=== PATIENT | female | born 1970 | race Caucasian/White ===

== ENCOUNTER 2023-12-08 12:01 | Emergency (ER) | payer OTHER, SELFPAY ==
[2023-12-08 12:20] VITALS: BP 161/74; PULSE 66; RESP 14; TEMP 36.7; O2SAT 100; BMI 25.7
--- NOTE | 2023-12-08 12:45 | ED.ABDPAIN ---
HPI - Abdominal Pain General Chief Complaint: Abdominal Pain Stated Complaint: abd pain wraps around to her back Time Seen by Provider: 12/08/23 12:30 Source: patient Mode of arrival: Ambulatory History of Present Illness HPI narrative: Patient 53-year-old female healthy without medical problems presenting today with ongoing abdominal pain. She reports that she thinks she may have a UTI she was frequent urination without dysuria ongoing for a couple of weeks. She says that it usually just resolve it is itself. However she is having bilateral flank pain. She overall feels bloated. She like pain is wrapping around her stomach. She has had change in bowel movements stating that she usually has soft stools but feels like they are little bit harder. She is not having any black or bloody stool. No nausea or vomiting. Related Data Home Medications Medication Instructions Recorded Confirmed ibuprofen 200 mg capsule (Advil 200 mg PO Q6H PRN Migraine Headache 12/08/23 12/08/23 Migraine) Previous Rx's Medication Instructions Recorded cephalexin 500 mg capsule 500 mg PO BID 3 days #6 caps 12/08/23 Allergies Allergy/AdvReac Type Severity Reaction Status Date / Time morphine AdvReac Severe ITCHING Verified 12/08/23 12:23 Patient History Social History Smoking Status: Never smoker Smoking Status: Never smoker alcohol intake frequency: 0-2 drinks per day Substance Use Type: does not use Exam Initial Vital Signs Initial Vital Signs: Vital Signs Temperature 98.1 F 12/08/23 12:20 Pulse Rate 66 12/08/23 12:20 Respiratory Rate 14 12/08/23 12:20 Blood Pressure 161/74 H 12/08/23 12:20 Pulse Oximetry 100 12/08/23 12:20 Oxygen Delivery Method Room Air 12/08/23 12:20 GENERAL: Alert well-appearing 53-year-old female HEENT: Head atraumatic,EOMI, pupils reactive, face symmetric, moist mucous membranes CARDIOVASCULAR: Regular rate and rhythm without murmurs, rubs or gallops. RESPIRATORY: Breath sounds equal bilaterally, no wheezes rales or rhonchi. ABDOMEN: Soft, nontender. Normoactive bowel sounds all 4 quadrants. No guarding or rebound. Negative right upper quadrant pain : Mild bilateral CVA tenderness EXTREMITIES: Normal range of motion, no clubbing or edema. Neurovascularly intact NEUROLOGICAL: Alert and oriented x4.Normal gait and speech. SKIN: Warm, dry, no laceration, no petechiae, no rashes or lesions. Course Orders Ordered: ED Orders 12/08/23 12:50 CT abdomen pelvis w con Stat Complete Blood Count AUTO DIFF Stat Comprehensive Metabolic Panel Stat Lipase Stat Discontinued Medications Ondansetron HCl (Ondansetron 4 Mg Odt) 4 mg PO NOW PRN PRN Reason: Nausea And Vomiting Ondansetron HCl (Ondansetron 4 Mg/2 Ml Inj) 4 mg IV NOW PRN PRN Reason: Nausea And Vomiting Vital Signs Vital signs: Vital Signs - 8 hr 12/08/23 12:20 Temperature 98.1 F Pulse Rate 66 Respiratory Rate 14 Blood Pressure 161/74 H Pulse Oximetry 100 Oxygen Delivery Method Room Air MDM - Abdominal Pain Lab Data 12/08/23 12:50 12/08/23 12:50 Labs: Lab Results 12/08/23 Range/Units 12:50 WBC 5.8 (4.5-11.0) X10^3/uL RBC 4.59 (4.0-5.2) X10^6/uL Hgb 14.0 (12.0-16.0) g/dL Hct 41.0 (36-46) % MCV 89.3 (80-100) fL MCH 30.4 (26-34) PG MCHC 34.0 (30-36) % RDW 13.6 (11.6-14.8) % Plt Count 271 (150-400) X10^3/uL Neut % (Auto) 59.9 (50-75) % Lymph % (Auto) 31.4 (25-40) % Coleman % (Auto) 6.3 (3-14) % Eos % (Auto) 1.1 L (2-4) % Baso % (Auto) 1.3 (0-2) % Neut # (Auto) 3500 (0248-4434) /uL Lymph # (Auto) 1800 (7884-4476) /uL Coleman # (Auto) 400 (0-900) /uL Eos # (Auto) 100 (0-450) /uL Baso # (Auto) 100 (0-100) /uL Sodium 139 (137-145) mmol/L Potassium 4.2 (3.4-5.1) mmol/L Chloride 107 (98-107) mmol/L Carbon Dioxide 28 (22-32) mmol/L BUN 12 (7-17) mg/dL Creatinine 0.62 (0.52-1.04) mg/dL Estimated GFR > 60 (>60) mL/min BUN/Creatinine Ratio 19.4 (6-22) Glucose 103 H (70-100) mg/dL Calcium 9.3 (8.4-10.2) mg/dL Total Bilirubin 0.8 (0.2-1.3) mg/dL AST 27 (14-36) IU/L ALT 20 (<35) IU/L Alkaline Phosphatase 79 (38-126) U/L Total Protein 8.0 (6.3-8.2) g/dL Albumin 4.4 (3.5-5.0) g/dL Globulin 3.6 (1.7-4.1) g/dL Albumin/Globulin Ratio 1.2 (1.0-2.8) Lipase 93 (23-300) U/L Point of care testing: Urine Dip Bedside Urine Glucose Negative Bedside Urine Bilirubin - Negative Bedside Urine Ketone - Negative Urine Specific [place] 1.010 Bedside Urine Occult Blood - Negative Bedside Urine pH 6.0 Bedside Urine Protein - Negative Bedside Urine Urobilinogen - Negative Bedside Urine Nitrite - Negative Bedside Urine Leukocytes - Negative Esterase Imaging Data CT scan - abdomen/pelvis: Radiologist's Impression: PROCEDURE: CT ABDOMEN PELVIS W CON INDICATIONS: ongoing ab pain and flank pain TECHNIQUE: After the administration of intravenous contrast, axial sections acquired from the lung bases to the pubic symphysis. Coronal and sagittal reformats were performed. For radiation dose reduction, the following was used: automated exposure control, adjustment of mA and/or kV according to patient size. COMPARISON: None. FINDINGS: Image quality: Diagnostic. Lower Chest: No significant findings. ABDOMEN: Liver: No solid mass. Gallbladder: A 3 mm gallstone is seen within the gallbladder lumen but no acute cholecystitis or biliary obstruction is associated. Biliary ducts: No biliary dilation. Pancreas: No ductal dilation. Spleen: Size is within normal limits. Adrenal Glands: No adrenal nodules. Kidneys and Ureters: No hydronephrosis. No solid mass. No complex renal cystic lesion which requires follow up. Stomach and Bowel: Normal colonic caliber, without significant wall thickening. Mild generalized colonic obstipation. Peritoneum: No abnormal intraperitoneal fluid. No free air. Ventral Wall: No significant ventral hernia. Abdominal Nodes: No retroperitoneal or mesenteric adenopathy by size criteria. Vessels: Aorta and inferior vena cava are normal in size. PELVIS: Pelvic Organs: Unremarkable. Bladder: No bladder wall thickening, accounting for underdistention. Pelvic Nodes: No enlarged lymph nodes. Miscellaneous: No inguinal hernias are seen. Generalized colonic obstipation. Bones: No aggressive osseous abnormality. IMPRESSION: Mild generalized colonic obstipation. Single small gallstone present within the gallbladder lumen without associated biliary dilatation or evidence of gallbladder inflammation. Dictated by: Wei Johnson M.D. on 12/08/2023 at 14:14 MDM Narrative Medical decision making narrative: Patient 53-year-old female presents today with variety of complaints. She feels like she has been having UTI for a couple of weeks with frequent urination but no dysuria. She is some mild flank pain with radiation around her abdomen. Blood work has been reviewed no leukocytosis or anemia, electrolytes are stable AST ALT and bilirubin are within normal limits, lipase 93, POC urine negative nitrates negative leukocyte Imaging has been reviewed CT does show a single small gallstones without biliary dilation and some mild general constipation Patient presents today with frequent urination without evidence of UTI. She was also having some bilateral flank pain and abnormal abdominal pain. CT does show 1 single gallstone without evidence of cholecystitis or cholelithiasis or choledocholithiasis. At this time recommend outpatient follow-up with surgery. Urinalysis is negative although patient is continuing to have frequent urination no evidence of diabetes with a glucose of 103. Will treat her with a short course of antibiotics to see if it improves her symptoms Discharge Plan Departure Patient Disposition: Home Clinical Impression: Cholelithiasis, Constipation Instructions: DI for Gallstones, DI for Constipation Activity Restrictions/Additional Instructions: *You have been diagnosed with constipation and gallstone *What to do: At this time your blood work is overall reassuring you do not have a kidney stone you do have 1 gallstone which is currently not causing any issue however in the future you may require future surgery Not convinced that you have a bladder infection urinary urine was negative with your frequent urination will try a couple days of antibiotic *Continue to take medications as directed Tylenol Motrin as needed for pain Keflex 500 mg twice a day for 3 days *Follow up with your primary care provider in 2-3 days or call [phone] *Return to ER if you should have increasing abdominal pain fever chills persistent nausea or vomiting or any new, worsening or concerning symptoms Prescriptions: New cephalexin 500 mg capsule 500 mg PO BID 3 Days Qty: 6 0RF No Action ibuprofen [Advil Migraine] 200 mg Capsule 200 mg PO Q6H PRN (Reason: Migraine Headache) Referrals: ProviderDaniel [Primary Care Provider] - Stand Alone Forms: Patient Portal/API
--- NOTE | 2023-12-08 12:50 | DI.CT.S_ITS ---
PROCEDURE: CT ABDOMEN PELVIS W CON INDICATIONS: ongoing ab pain and flank pain TECHNIQUE: After the administration of intravenous contrast, axial sections acquired from the lung bases to the pubic symphysis. Coronal and sagittal reformats were performed. For radiation dose reduction, the following was used: automated exposure control, adjustment of mA and/or kV according to patient size. COMPARISON: None. FINDINGS: Image quality: Diagnostic. Lower Chest: No significant findings. ABDOMEN: Liver: No solid mass. Gallbladder: A 3 mm gallstone is seen within the gallbladder lumen but no acute cholecystitis or biliary obstruction is associated. Biliary ducts: No biliary dilation. Pancreas: No ductal dilation. Spleen: Size is within normal limits. Adrenal Glands: No adrenal nodules. Kidneys and Ureters: No hydronephrosis. No solid mass. No complex renal cystic lesion which requires follow up. Stomach and Bowel: Normal colonic caliber, without significant wall thickening. Mild generalized colonic obstipation. Peritoneum: No abnormal intraperitoneal fluid. No free air. Ventral Wall: No significant ventral hernia. Abdominal Nodes: No retroperitoneal or mesenteric adenopathy by size criteria. Vessels: Aorta and inferior vena cava are normal in size. PELVIS: Pelvic Organs: Unremarkable. Bladder: No bladder wall thickening, accounting for underdistention. Pelvic Nodes: No enlarged lymph nodes. Miscellaneous: No inguinal hernias are seen. Generalized colonic obstipation. Bones: No aggressive osseous abnormality. IMPRESSION: Mild generalized colonic obstipation. Single small gallstone present within the gallbladder lumen without associated biliary dilatation or evidence of gallbladder inflammation. Dictated by: Wei Johnson M.D. on 12/08/2023 at 14:14 Approved by: Wei Johnson M.D. on 12/08/2023 at 14:16
[2023-12-08 13:02] LABS: Add Manual Diff / Slide Review NO; Basophils Absolute Auto 100 /uL (0-100); Basophils Percent Auto 1.3 % (0-2); Eosinophils Absolute Auto 100 /uL (0-450); Eosinophils Percent Auto 1.1 % (2-4); Lymphocytes Absolute Auto 1800 /uL (1100-4500); Lymphocytes Percent Auto 31.4 % (25-40); Mean Corpuscular Hemoglobin 30.4 PG (26-34); Mean Corpuscular Volume 89.3 fL (80-100); Monocytes Absolute Auto 400 /uL (0-900); Monocytes Percent Auto 6.3 % (3-14); Neutrophils Absolute Auto 3500 /uL (1500-7000); Neutrophils Percent Auto 59.9 % (50-75); Platelet Count 271 X10^3/uL (150-400); Red Blood Cell Count 4.59 X10^6/uL (4.0-5.2); Red Cell Distribution Width 13.6 % (11.6-14.8); White Blood Cell Count 5.8 X10^3/uL (4.5-11.0)
[2023-12-08 13:19] LABS: Alanine Aminotransferase 20 IU/L (<35); Albumin 4.4 g/dL (3.5-5.0); Albumin Globulin Ratio 1.2 (1.0-2.8); Alkaline Phosphatase 79 U/L (38-126); Aspartate Aminotransferase 27 IU/L (14-36); BUN Creatinine Ratio 19.4 (6-22); Bilirubin Total 0.8 mg/dL (0.2-1.3); Blood Urea Nitrogen 12 mg/dL (7-17); Calcium 9.3 mg/dL (8.4-10.2); Carbon Dioxide 28 mmol/L (22-32); Chloride 107 mmol/L (98-107); Estimated Glomerular Filt Rate > 60 mL/min (>60); Globulin 3.6 g/dL (1.7-4.1); Glucose 103 mg/dL (70-100); HEMOLYSIS 38 (0-50); Lipase 93 U/L (23-300); Potassium 4.2 mmol/L (3.4-5.1); Sodium 139 mmol/L (137-145)
== END 2023-12-08 15:01 | disposition home or self-care (01) ==
PROVIDERS: Emergency Provider Emergency Medicine
DX: K80.20 Calculus of gallbladder without cholecystitis without obstruction (principal); K59.00 Constipation, unspecified
CPT/HCPCS: 36415; 74177; 80053; 81003; 83690; 85025; 99283; 99284; Q9967

== ENCOUNTER 2024-06-09 09:52 | Emergency (ER) | payer OTHER, SELFPAY ==
[2024-06-09 10:21] VITALS: BP 131/73; PULSE 61; RESP 18; TEMP 36.2; O2SAT 100; BMI 25.5
--- NOTE | 2024-06-09 11:43 | DI.CT.S_ITS ---
PROCEDURE: CT ABDOMEN PELVIS W CON INDICATIONS: RLQ/LLQ abd pain, Diarrhea TECHNIQUE: After the administration of intravenous contrast, axial sections acquired from the lung bases to the pubic symphysis. Coronal and sagittal reformats were performed. For radiation dose reduction, the following was used: automated exposure control, adjustment of mA and/or kV according to patient size. COMPARISON: [facility], CT, CT ABDOMEN PELVIS W CON, 12/08/2023, 13:51. FINDINGS: Lower thorax: The lung bases are clear. Heart size normal. No hiatal hernia. Bilateral breast prosthesis Liver: Normal in size and attenuation. No contour deformity present. Biliary system: No calcified cholelithiasis or pericholecystic inflammation. No intra or extrahepatic bile duct dilatation. Pancreas: Unremarkable without mass or inflammation evident. Spleen: Normal in size and density. Adrenals: Normal morphology and density. Reproductive system: Unremarkable as visualized. Urinary system: Normal renal size and attenuation. No renal calculi, hydronephrosis, or solid mass present. Urinary bladder unremarkable. Gastrointestinal system: The bowel is unremarkable without evidence of bowel obstruction or inflammation. The stomach appears unremarkable. Appendix: Appendectomy Peritoneal spaces: No mesenteric or retroperitoneal adenopathy. No free air. No free fluid. Vasculature: The IVC, aorta and iliac vasculature are unremarkable. Abdominal wall: Abdominal wall intact without evidence of ventral or inguinal hernias. Musculoskeletal: Normal bone mineralization. No acute fractures. IMPRESSION: No acute CT findings in the abdomen and pelvis. Approved by: Brijesh Hi M.D. on 06/09/2024 at 12:57
[2024-06-09 12:35] LABS: Add Manual Diff / Slide Review NO; Basophils Absolute Auto 100 /uL (0-100); Basophils Percent Auto 1.3 % (0-2); Eosinophils Absolute Auto 100 /uL (0-450); Eosinophils Percent Auto 1.8 % (2-4); Hematocrit 39.4 % (36-46); Hemoglobin 13.5 g/dL (12.0-16.0); Lymphocytes Absolute Auto 1700 /uL (1100-4500); Lymphocytes Percent Auto 37.6 % (25-40); Mean Corpuscular HGB Conc 34.2 % (30-36); Mean Corpuscular Hemoglobin 30.6 PG (26-34); Mean Corpuscular Volume 89.5 fL (80-100); Monocytes Absolute Auto 400 /uL (0-900); Monocytes Percent Auto 8.3 % (3-14); Neutrophils Absolute Auto 2400 /uL (1500-7000); Platelet Count 248 X10^3/uL (150-400); Red Cell Distribution Width 13.3 % (11.6-14.8); White Blood Cell Count 4.6 X10^3/uL (4.5-11.0)
[2024-06-09 12:41] LABS: Alanine Aminotransferase 18 IU/L (<35); Albumin 4.1 g/dL (3.5-5.0); Albumin Globulin Ratio 1.4 (1.0-2.8); Alkaline Phosphatase 88 U/L (38-126); Aspartate Aminotransferase 23 IU/L (14-36); BUN Creatinine Ratio 14.5 (6-22); Bilirubin Total 0.7 mg/dL (0.2-1.3); Blood Urea Nitrogen 10 mg/dL (7-17); Calcium 8.8 mg/dL (8.4-10.2); Carbon Dioxide 24 mmol/L (22-32); Chloride 107 mmol/L (98-107); Estimated Glomerular Filt Rate > 60 mL/min (>60); Glucose 98 mg/dL (70-100); HEMOLYSIS < 15 (0-50); Lipase 88 U/L (23-300); Sodium 138 mmol/L (137-145); Total Protein 7.1 g/dL (6.3-8.2)
[2024-06-09 12:42] LABS: Lactate (Lactic Acid) 1.1 mmol/L (0.7-2.1)
[2024-06-09 12:53] LABS: Troponin I < 0.012 ng/mL (0.01-0.034)
[2024-06-09] MEDS: SODIUM CHLORIDE 0.9% 1,000 ML 1000 ML IV (13:01)
[2024-06-09 13:05] LABS: Prothrombin Time 11.9 SECONDS (9.4-12.5)
--- NOTE | 2024-06-09 13:05 | PC.NURSE ---
Pt reports gurgling in her abdomen. Pt states she has been working and eating a lot of almonds. Pt wonders if she has a food allergy. Pt states she has been having abd discomfort and is unsure what is causing her pain/discomfort.
[2024-06-09 13:08] LABS: PTT Partial Thromboplastin Tim 38 SECONDS (25.1-36.5)
--- NOTE | 2024-06-09 14:21 | ED_ITS ---
HPI - Abdominal Pain <Lázaro Mcnally PA-C - Last Filed: 06/09/24 14:29> General Chief Complaint: Urogenital-Female Stated Complaint: poss uti Time Seen by Provider: 06/09/24 11:01 Source: patient Mode of arrival: Family Vehicle History of Present Illness HPI narrative: This patient is a 53-year-old female that presents today for left lower quadrant abdominal pain and diarrhea. She thinks she might be experiencing increased urinary frequency but she has not sure. The patient is hoping that this is only a urinary tract infection. Patient states that this has happened once before approximately 6 months ago where she was seen at this facility. She was diagnosed with constipation in a gallstone. The patient could not recall what her diagnosis was 6 months ago. The patient has not followed up with her PCP regarding today's chief complaint. The patient states that she had a GI workup multiple years ago which included multiple colonoscopies that she did not have colitis. She denies hematemesis, melena, hematochezia, night sweats, fever, chills, back pain or flank pain. She also denies gross hematuria. There has been no chest pain or shortness of breath associated with this. Initial onset was last night at approximately 8:00 p.m.. Related Data Home Medications Medication Instructions Recorded Confirmed ibuprofen 200 mg capsule (Advil 200 mg PO Q6H PRN Migraine Headache 12/08/23 12/08/23 Migraine) Previous Rx's Medication Instructions Recorded dicyclomine 20 mg tablet 20 mg PO TID Abdominal pain #20 06/09/24 tabs ondansetron 8 mg disintegrating 8 mg PO Q8H nausea #20 tabs 06/09/24 tablet Allergies Allergy/AdvReac Type Severity Reaction Status Date / Time Sulfa (Sulfonamide Allergy Hives Verified 06/09/24 10:25 Antibiotics) morphine AdvReac Severe ITCHING Verified 06/09/24 10:25 Review of Systems <Lázaro Mcnally PA-C - Last Filed: 06/09/24 14:29> Review of Systems Narrative: General: See HPI GI: See HPI : See HPI All other review of systems have been reviewed and are ultimately negative unless otherwise stated in the HPI. Patient History <Lázaro Mcnally PA-C - Last Filed: 06/09/24 14:29> Social History Smoking Status: Never smoker Smoking Status: Never smoker alcohol intake frequency: 0-2 drinks per day Substance Use Type: does not use Exam <Lázaro Mcnally PA-C - Last Filed: 06/09/24 14:29> Initial Vital Signs Initial Vital Signs: Vital Signs Temperature 97.1 F L 06/09/24 10:21 Pulse Rate 61 06/09/24 10:21 Respiratory Rate 18 06/09/24 10:21 Blood Pressure 131/73 06/09/24 10:21 Pulse Oximetry 100 06/09/24 10:21 Oxygen Delivery Method Room Air 06/09/24 10:21 Const General: cooperative, healthy appearing, comfortable, well developed and well groomed Nutritional Appearance: average body habitus Orientation: Orientation [facility] Head: normal to inspection, normocephalic and atraumatic Ears: hearing grossly normal bilaterally and external ears normal Nose: external nose normal and nares normal Face and sinus: normal facial exam Mouth: oral mucosae normal Teeth and gingiva: dentition normal Eyes General: Yes appearance normal, both eyes and all related structures Neck Neck: normal visual inspection, full ROM and no meningeal signs Resp Effort & Inspection: normal respiratory effort and able to speak in complete sentences Auscultation: clear to auscultation bilaterally Cardio Rate: regular rate Rhythm: regular rhythm Heart Sounds: S1 normal and S2 normal GI Palpation: soft and tender (Right lower and left lower quadrant) Auscultation: normal bowel sounds General: other Other: No CVA tenderness bilaterally Back/Spine/Pelvis Back: normal to inspection Skin General: no rashes or lesions noted, elasticity normal and turgor normal Neuro General: patient alert, patient awake, patient oriented x3 and gait normal Extrem General: normal to inspection, full ROM, capillary refill normal, normal exam except as noted, no clubbing, cyanosis or edema and no pedal edema Psych Appearance: grossly normal and well kempt <Jade Ibanez DO - Last Filed: 06/10/24 07:11> Initial Vital Signs Initial Vital Signs: Vital Signs Temperature 97.1 F L 06/09/24 10:21 Pulse Rate 61 06/09/24 10:21 Respiratory Rate 18 06/09/24 10:21 Blood Pressure 131/73 06/09/24 10:21 Pulse Oximetry 100 06/09/24 10:21 Oxygen Delivery Method Room Air 06/09/24 10:21 Course <Lázaro Mcnally PA-C - Last Filed: 06/09/24 14:29> Course Course Narrative: Patient was seen and examined. Labs including a CT scan of the abdomen and pelvis were ordered. The urinalysis was initiated after triage which was unremarkable. The CBC, CMP, troponin, lipase and coags are all within normal limits as well. No gross abnormalities noted. CT scan of the abdomen and pelvis with contrast, according to the radiologist, revealed no acute findings. Patient did receive Zofran 4 mg ODT at the time of triage and she also received a L normal saline. Patient had no decompensation in her overall condition. Patient was notified of the negative findings. She was then prepped for discharge home. Patient will be continued with Zofran ODT and dicyclomine for the short term. Orders Ordered: Discontinued Medications Sodium Chloride (Normal Saline 0.9%) 1,000 mls @ 1,000 mls/hr IV BOLUS ONE Stop: 06/09/24 12:43 Last Infusion: 06/09/24 14:12 Dose: Infused Documented By: Admin: 06/09/24 13:01 Dose: 1,000 mls/hr Documented By: BERTHA Ondansetron HCl (Ondansetron 4 Mg/2 Ml Inj) 4 mg IV NOW PRN PRN Reason: Nausea And Vomiting Ondansetron HCl (Ondansetron 4 Mg Odt) 4 mg SL NOW PRN PRN Reason: Nausea And Vomiting Vital Signs Vital signs: Vital Signs - 8 hr 06/09/24 10:21 Temperature 97.1 F L Pulse Rate 61 Respiratory Rate 18 Blood Pressure 131/73 Pulse Oximetry 100 Oxygen Delivery Method Room Air <Jade Ibanez DO - Last Filed: 06/10/24 07:11> Orders Ordered: Discontinued Medications Sodium Chloride (Normal Saline 0.9%) 1,000 mls @ 1,000 mls/hr IV BOLUS ONE Stop: 06/09/24 12:43 Last Infusion: 06/09/24 14:12 Dose: Infused Documented By: Admin: 06/09/24 13:01 Dose: 1,000 mls/hr Documented By: BERTHA Ondansetron HCl (Ondansetron 4 Mg/2 Ml Inj) 4 mg IV NOW PRN PRN Reason: Nausea And Vomiting Ondansetron HCl (Ondansetron 4 Mg Odt) 4 mg SL NOW PRN PRN Reason: Nausea And Vomiting Vital Signs Vital signs: Vital Signs - 8 hr 06/09/24 10:21 Temperature 97.1 F L Pulse Rate 61 Respiratory Rate 18 Blood Pressure 131/73 Pulse Oximetry 100 Oxygen Delivery Method Room Air MDM - Abdominal Pain <Lázaro Mcnally PA-C - Last Filed: 06/09/24 14:29> Differential Diagnosis Differential diagnosis: Likely abdominal pain, constipation, diverticulitis, gastroenteritis, pancreatitis and small bowel obstruction Medical Records Attestation: I reviewed the patient's medical records. Lab Data Attestation: I reviewed the patient's lab results. 06/09/24 12:18 06/09/24 12:18 Labs: Lab Results 06/09/24 06/09/24 Range/Units 12:18 12:38 WBC 4.6 (4.5-11.0) X10^3/uL RBC 4.40 (4.0-5.2) X10^6/uL Hgb 13.5 (12.0-16.0) g/dL Hct 39.4 (36-46) % MCV 89.5 (80-100) fL MCH 30.6 (26-34) PG MCHC 34.2 (30-36) % RDW 13.3 (11.6-14.8) % Plt Count 248 (150-400) X10^3/uL Neut % (Auto) 51.0 (50-75) % Lymph % (Auto) 37.6 (25-40) % [place] % (Auto) 8.3 (3-14) % Eos % (Auto) 1.8 L (2-4) % Baso % (Auto) 1.3 (0-2) % Neut # (Auto) 2400 (8849-7539) /uL Lymph # (Auto) 1700 (8419-1243) /uL [place] # (Auto) 400 (0-900) /uL Eos # (Auto) 100 (0-450) /uL Baso # (Auto) 100 (0-100) /uL PT 11.9 (9.4-12.5) SECONDS INR 1.0 (0.9-1.3) APTT 38 H (25.1-36.5) SECONDS Sodium 138 (137-145) mmol/L Potassium 4.0 (3.4-5.1) mmol/L Chloride 107 (98-107) mmol/L Carbon Dioxide 24 (22-32) mmol/L BUN 10 (7-17) mg/dL Creatinine 0.69 (0.52-1.04) mg/dL Estimated GFR > 60 (>60) mL/min BUN/Creatinine Ratio 14.5 (6-22) Glucose 98 (70-100) mg/dL Lactate 1.1 (0.7-2.1) mmol/L Calcium 8.8 (8.4-10.2) mg/dL Total Bilirubin 0.7 (0.2-1.3) mg/dL AST 23 (14-36) IU/L ALT 18 (<35) IU/L Alkaline Phosphatase 88 (38-126) U/L Troponin I < 0.012 (0.01-0.034) ng/mL Total Protein 7.1 (6.3-8.2) g/dL Albumin 4.1 (3.5-5.0) g/dL Globulin 3.0 (1.7-4.1) g/dL Albumin/Globulin Ratio 1.4 (1.0-2.8) Lipase 88 (23-300) U/L Point of care testing: Urine Dip Bedside Urine Glucose Negative Bedside Urine Bilirubin - Negative Bedside Urine Ketone - Negative Urine Specific [place] 1.010 Bedside Urine Occult Blood - Negative Bedside Urine pH 6.0 Bedside Urine Protein - Negative Bedside Urine Urobilinogen - Negative Bedside Urine Nitrite - Negative Bedside Urine Leukocytes - Negative Esterase Imaging Data CT scan - abdomen/pelvis: Radiologist's Impression: No acute findings MDM Narrative Medical decision making narrative: At this time, the patient is experiencing right lower and left lower quadrant abdominal pain with a normal CT scan of the abdomen and pelvis with contrast. Her CBC, CMP and lipase are all within normal limits as well. I do not believe this is an abnormal presentation for an [place] with a normal troponin. The patient is not complaining of chest pain. I also do not believe this is a bowel obstruction. Her urinalysis did not reveal any abnormalities. I do not believe this is pyelonephritis, nephrolithiasis or UTI. Patient appears clinically stable for outpatient follow up. She understands the treatment plan. There are no additional questions at the time of discharge and she will follow up as requested <Jade Ibanez DO - Last Filed: 06/10/24 07:11> Lab Data Labs: Lab Results 06/09/24 06/09/24 Range/Units 12:18 12:38 WBC 4.6 (4.5-11.0) X10^3/uL RBC 4.40 (4.0-5.2) X10^6/uL Hgb 13.5 (12.0-16.0) g/dL Hct 39.4 (36-46) % MCV 89.5 (80-100) fL MCH 30.6 (26-34) PG MCHC 34.2 (30-36) % RDW 13.3 (11.6-14.8) % Plt Count 248 (150-400) X10^3/uL Neut % (Auto) 51.0 (50-75) % Lymph % (Auto) 37.6 (25-40) % [place] % (Auto) 8.3 (3-14) % Eos % (Auto) 1.8 L (2-4) % Baso % (Auto) 1.3 (0-2) % Neut # (Auto) 2400 (7187-4525) /uL Lymph # (Auto) 1700 (4814-4495) /uL [place] # (Auto) 400 (0-900) /uL Eos # (Auto) 100 (0-450) /uL Baso # (Auto) 100 (0-100) /uL PT 11.9 (9.4-12.5) SECONDS INR 1.0 (0.9-1.3) APTT 38 H (25.1-36.5) SECONDS Sodium 138 (137-145) mmol/L Potassium 4.0 (3.4-5.1) mmol/L Chloride 107 (98-107) mmol/L Carbon Dioxide 24 (22-32) mmol/L BUN 10 (7-17) mg/dL Creatinine 0.69 (0.52-1.04) mg/dL Estimated GFR > 60 (>60) mL/min BUN/Creatinine Ratio 14.5 (6-22) Glucose 98 (70-100) mg/dL Lactate 1.1 (0.7-2.1) mmol/L Calcium 8.8 (8.4-10.2) mg/dL Total Bilirubin 0.7 (0.2-1.3) mg/dL AST 23 (14-36) IU/L ALT 18 (<35) IU/L Alkaline Phosphatase 88 (38-126) U/L Troponin I < 0.012 (0.01-0.034) ng/mL Total Protein 7.1 (6.3-8.2) g/dL Albumin 4.1 (3.5-5.0) g/dL Globulin 3.0 (1.7-4.1) g/dL Albumin/Globulin Ratio 1.4 (1.0-2.8) Lipase 88 (23-300) U/L Point of care testing: Urine Dip Bedside Urine Glucose Negative Bedside Urine Bilirubin - Negative Bedside Urine Ketone - Negative Urine Specific [place] 1.010 Bedside Urine Occult Blood - Negative Bedside Urine pH 6.0 Bedside Urine Protein - Negative Bedside Urine Urobilinogen - Negative Bedside Urine Nitrite - Negative Bedside Urine Leukocytes - Negative Esterase Discharge Plan Departure Patient Disposition: Home Clinical Impression: Nausea Abdominal pain Qualifiers: Abdominal location: left lower quadrant Qualified Code(s): R10.32 - Left lower quadrant pain Diarrhea Qualifiers: Diarrhea type: unspecified type Qualified Code(s): R19.7 - Diarrhea, unspecified Instructions: [place] Diet, DI for Abdominal Pain-Adult Activity Restrictions/Additional Instructions: Increase clear fluid intake and rest today Start the medications today as prescribed and take as needed Consume a bland diet from this point forward Follow up and establish care with a PCP of your choice this week You will likely require additional workup from a [employer] [employer] Return here for any new, emergent concerns or if he should worsen in any way Prescriptions: New ondansetron 8 mg tablet,disintegrating 8 mg PO Q8H Qty: 20 0RF dicyclomine 20 mg tablet 20 mg PO TID Qty: 20 0RF No Action ibuprofen [Advil Migraine] 200 mg Capsule 200 mg PO Q6H PRN (Reason: Migraine Headache) Referrals: ProviderDaniel [Primary Care Provider] - Stand Alone Forms: Patient Portal/API ED Sign-out <Jade Ibanez DO - Last Filed: 06/10/24 07:11> Cosign ED Attending Margaritaature Attestation: I was available for consultation.
[2024-06-09 14:22] VITALS: BP 129/69; PULSE 55; RESP 16; TEMP 36.6; O2SAT 100
== END 2024-06-09 14:23 | disposition home or self-care (01) ==
PROVIDERS: Emergency Provider Physician Assistant
DX: R10.32 Left lower quadrant pain (principal); R19.7 Diarrhea, unspecified; R11.0 Nausea
CPT/HCPCS: 74177; 80053; 81003; 83605; 83690; 84484; 85025; 85610; 85730; 96360; 99283; 99284; Q9967

== ENCOUNTER → 2024-09-06 08:12 | Outpatient (CLI) | payer OTHER, SELFPAY ==
[2024-09-06 08:58] LABS: Hemoglobin A1C% w Est Avg Glu 5.8 % (4.0-6.0)
[2024-09-06 08:59] LABS: Cholesterol 247 mg/dL (140-199); HDL Cholesterol 43 mg/dL (40-60); LDL Cholesterol Calculated 171 mg/dL (<100); Triglycerides 165 mg/dL (35-150)
== END ==
PROVIDERS: PCP Family Medicine; Referring Provider Family Medicine; Visit Provider Family Medicine
DX: Z13.220 Encounter for screening for lipoid disorders (principal); Z13.1 Encounter for screening for diabetes mellitus; Z68.28 Body mass index [BMI] 28.0-28.9, adult
CPT/HCPCS: 36415; 80061; 83036

== ENCOUNTER 2025-01-11 18:58 | Emergency (ER) | payer OTHER, SELFPAY ==
[2025-01-11 19:05] VITALS: BP 143/86; PULSE 80; RESP 16; TEMP 36.3; O2SAT 99; BMI 27.3
[2025-01-11 19:23] LABS: Strep Grp A by PCR Rapid Negative (Negative)
--- NOTE | 2025-01-11 19:40 | ED_ITS ---
HPI - Skin/Abscess/Foreign Bdy General Chief complaint: Skin/Abscess/Foreign Body Stated complaint: wants to rule out strep possible right leg infec Time Seen by Provider: 01/11/25 19:15 Source: patient Mode of arrival: Ambulatory Limitations: no limitations History of Present Illness HPI narrative: 54-year-old female with multiple complaints. Complains of 6 days duration of nasal congestion and left-sided ear discomfort, some dry cough. Also has sore spot with increasing redness to the right distal lateral foreleg, scratched it on a piece of metal a few days ago, seems to be increasing in size. She is not taking any topical or oral antibiotics. She also has a small skin sore in the left groin area, that is not draining. Related Data Previous Rx's Medication Instructions Recorded sumatriptan succinate 4 mg/0.5 mL 4 mg (0.5 mL) SUBCUT ONCE #1 mL 08/20/24 subcutaneous pen injector (Imitrex STATdose Pen) cephalexin 500 mg capsule 500 mg PO QID 7 days #28 caps 01/11/25 Allergies Allergy/AdvReac Type Severity Reaction Status Date / Time Sulfa (Sulfonamide Allergy Hives Verified 08/20/24 14:53 Antibiotics) morphine AdvReac Severe ITCHING Verified 08/20/24 14:53 Patient History Medical History (Updated 01/11/25 @ 19:56 by Jeffry Almeida MD) Migraines Scoliosis (~1981) Endometriosis (~2019) Abnormal Pap smear of cervix (~2020) BMI 28.0-28.9,adult Surgical History (Updated 09/08/24 @ 20:00 by Melissa Woody) History of colonoscopy Anesthesia History of appendectomy History of section Family History (Updated 09/08/24 @ 20:01 by Melissa Woody) Father Dementia Mother Osteoporosis Social History Smoking Status: Never smoker Smoking Status: Never smoker alcohol intake frequency: 0-2 drinks per day Exam Narrative Exam Narrative: GENERAL:Well-developed patient, in mild distress. HEAD: Atraumatic. Normocephalic. EYES: Pupils equal round and reactive. Extraocular motions intact. No scleral icterus. No injection or drainage. ENT: Nose without bleeding, purulent drainage. Throat without erythema, tonsillar hypertrophy or exudate. Airway patent. TMs appear clear. EACs clear. NECK: Trachea midline. Non tender CARDIOVASCULAR: Regular rate and rhythm without murmurs, gallops, or rubs. RESPIRATORY: Clear to auscultation. Breath sounds equal bilaterally. No wheezes, rales, or rhonchi. GASTROINTESTINAL: Abdomen soft, non-tender, nondistended. EXTREMITIES: No edema or joint tenderness. BACK: Nontender without deformity or crepitance. No flank tenderness. NEURO: AOx3. Motor functions grossly nonfocal SKIN: Small area of cellulitis appearance 2-1/2 cm diameter right lateral foreleg, can move her ankle well, no expressible fluid or fluctuance or crepitance. Small erythematous subcentimeter area of erythema along the left groin panty line consistent with folliculitis, no expressible fluid. Initial Vital Signs Initial Vital Signs: Vital Signs Temperature 97.3 F L 01/11/25 19:05 Pulse Rate 80 01/11/25 19:05 Respiratory Rate 16 01/11/25 19:05 Blood Pressure 143/86 H 01/11/25 19:05 Pulse Oximetry 99 01/11/25 19:05 Oxygen Delivery Method Room Air 01/11/25 19:05 Course Orders Ordered: ED Orders 01/11/25 19:08 Covid-19 + FLU A/B + RSV - PCR Stat Strep Grp A by PCR Rapid Stat Discontinued Medications Cephalexin HCl (Cephalexin 250 Mg Capsule) 500 mg PO NOW ONE Stop: 01/11/25 19:50 Last Admin: 01/11/25 20:16 Dose: 500 mg Documented By: [facility] Vital Signs Vital signs: Vital Signs - 8 hr 01/11/25 19:05 01/11/25 20:03 Temperature 97.3 F L Pulse Rate 80 71 Respiratory Rate 16 15 Blood Pressure 143/86 H 123/77 Pulse Oximetry 99 97 Oxygen Delivery Method Room Air MDM - Skin/Abscess/Foreign Bdy Lab Data Labs: Lab Results 01/11/25 Range/Units 19:08 SARS-CoV-2 (PCR) Negative (Negative) Influenza A (RT-PCR) Flu a negative (NEGATIVE) Influenza B (RT-PCR) Flu b negative (NEGATIVE) RSV (PCR) Negative (Negative) Group A Strep (PCR) Negative (Negative) MDM Narrative Medical decision making narrative: 54-year-old female with recent viral syndrome upper respiratory symptoms, left ear pain without drainage, sore throat. Also skin soreness redness right lateral distal foreleg appears consistent with cellulitis, recent scratched noted. Small area of left panty line folliculitis non drainable non expressible non fluctuant. Trial of cephalexin antibiotic for now. First dose in the emergency department, prescription sent to her pharmacy. Advised o [id number] analgesics to use as needed. Recheck symptoms with regular provider if not improved early next week. Return precautions discussed. Home with family. Discharge Plan Departure Patient Disposition: Home Clinical Impression: Upper respiratory infection, Sore throat, Cellulitis of right leg, Folliculitis Activity Restrictions/Additional Instructions: Recent upper respiratory tract like symptoms, with left ear pain without drainage, normal ear and canal examination. Strep screen negative. COVID/influenza swab negative. Possible eustachian inflammation related ear pain, [id number] Motrin medication and perhaps [id number]-nrydwyp antihistamines might help with this symptoms. Also right foreleg cellulitis with recent scratching injury, increasing redness, trial of outpatient antibiotics for now, 1st dose cephalexin given, further antibiotics prescription sent to your pharmacy to take for the next week. Small area of folliculitis left panty line, no expressible fluid. For now seems reasonable to see if it responds to cephalexin. Sometimes folliculitis can be caused by resistant staph aureus bacteria, that might need to other antibiotics besides cephalexin. Recheck symptoms if persisting early next week with your regular doctor. Return to this/nearest emergency department for any change worsening symptoms or any concerns prior. Prescriptions: New cephalexin 500 mg capsule 500 mg PO QID 7 Days Qty: 28 0RF No Action sumatriptan succinate [Imitrex STATdose Pen] 4 mg/0.5 mL pen injector 4 mg SUBCUT ONCE Qty: 1 2RF Referrals: Brooklynn Hutton DO [Primary Care Provider] - Stand Alone Forms: Patient Portal/API/Survey
[2025-01-11 19:50] LABS: Influenza A - CEPHEID Flu A NEGATIVE (NEGATIVE); Influenza B - CEPHEID Flu B NEGATIVE (NEGATIVE); Respiratory Syncytial Virus Negative (Negative)
[2025-01-11 19:58] LABS: COVID-19 CEPHEID 4-PLEX PCR Negative (Negative)
[2025-01-11 20:03] VITALS: BP 123/77; PULSE 71; RESP 15; O2SAT 97
[2025-01-11] MEDS: cephALEXin 250 MG CAPSULE 500 MG PO (20:16)
== END 2025-01-11 20:21 | disposition home or self-care (01) ==
PROVIDERS: Emergency Provider Emergency Medicine; PCP Family Medicine
DX: J06.9 Acute upper respiratory infection, unspecified (principal); L03.115 Cellulitis of right lower limb; L73.9 Follicular disorder, unspecified
CPT/HCPCS: 0241U; 87651; 99283

== ENCOUNTER 2025-02-04 18:26 | Emergency (ER) | payer OTHER, SELFPAY ==
[2025-02-04 18:50] VITALS: BP 133/78; PULSE 70; RESP 16; TEMP 36.4; O2SAT 99; BMI 27.3
--- NOTE | 2025-02-04 22:25 | ED_ITS ---
HPI - Recheck/Abnormal Lab/Rx General Chief Complaint: Recheck/Abnormal Lab/Rx Stated Complaint: Rt Leg Infection, Pain, finished antibiotics Time Seen by Provider: 02/04/25 21:37 Source: patient Mode of arrival: Ambulatory History of Present Illness HPI narrative: 54-year-old female with scratch wound to her right lateral distal foreleg, seen here by me on 01/11/2025 with cellulitis for which he was treated with 7 day course cephalexin, she recalls completing the course, she has been off antibiotics a couple of weeks now, with incomplete resolution of the redness by significantly improved, now with increasing redness last couple of days, no weeping or swelling. She is able to walk. No streaking or redness upper down the leg. No pain to the right ankle or foot. She does not feel feverish. Related Data Previous Rx's ?Medication ?Instructions ?Recorded sumatriptan succinate 4 mg/0.5 mL 4 mg (0.5 mL) SUBCUT ONCE #1 mL 08/20/24 subcutaneous pen injector (Imitrex STATdose Pen) clindamycin HCl 300 mg capsule 300 mg PO Q6H Dental in fection 7 02/04/25 days #28 caps Allergies Allergy/AdvReac Type Severity Reaction Status Date / Time Sulfa (Sulfonamide Allergy Hives Verified 02/04/25 18:51 Antibiotics) morphine AdvReac Severe ITCHING Verified 02/04/25 18:51 Patient History Medical History (Updated 02/04/25 @ 22:40 by Jeffry Almeida MD) Migraines Scoliosis (~1981) Endometriosis (~2019) Abnormal Pap smear of cervix (~2019) BMI 28.0-28.9,adult Surgical History (Updated 09/08/24 @ 20:00 by Melissa Woody) History of colonoscopy Anesthesia History of appendectomy History of section Family History (Updated 09/08/24 @ 20:01 by Melissa Woody) Father Dementia Mother Osteoporosis Social History Smoking Status: Never smoker Smoking Status: Never smoker alcohol intake frequency: 0-2 drinks per day Exam Narrative Exam Narrative: GENERAL: Well-developed patient, in mild distress. HEAD: Atraumatic. Normocephalic. EYES: Pupils equal round and reactive. Extraocular motions intact. No scleral icterus. No injection or drainage. ENT: Nose without bleeding, purulent drainage. Throat without erythema, tonsillar hypertrophy or exudate. Airway patent. NECK: Trachea midline. Non tender CARDIOVASCULAR: Regular rate and rhythm without murmurs, gallops, or rubs. RESPIRATORY: Clear to auscultation. Breath sounds equal bilaterally. No wheezes, rales, or rhonchi. GASTROINTESTINAL: Abdomen soft, non-tender, nondistended. EXTREMITIES: Right lower extremity with distal lateral area of erythema ovoid with dimensions about 8 cm x 4 cm. She can flex and extend well at her ankle. No crepitance or expressible fluid. No fluctuance or bullae. BACK: Nontender without deformity or crepitance. No flank tenderness. NEURO: AOx3. Motor functions grossly nonfocal. SKIN: No rash or erythema of visible areas Initial Vital Signs Initial Vital Signs: Vital Signs Temperature 97.6 F 02/04/25 18:50 Pulse Rate 70 02/04/25 18:50 Respiratory Rate 16 02/04/25 18:50 Blood Pressure 133/78 02/04/25 18:50 Pulse Oximetry 99 02/04/25 18:50 Oxygen Delivery Method Room Air 02/04/25 18:50 Course Orders Ordered: Discontinued Medications Clindamycin HCl (Clindamycin 150 Mg Capsule) 300 mg PO NOW ONE Stop: 02/04/25 22:36 Last Admin: 02/04/25 22:39 Dose: 300 mg Documented By: CAROL Vital Signs Vital signs: Vital Signs - 8 hr 02/04/25 18:50 02/04/25 23:20 Temperature 97.6 F Pulse Rate 70 79 Respiratory Rate 16 14 Blood Pressure 133/78 121/81 Pulse Oximetry 99 96 Oxygen Delivery Method Room Air Room Air MDM - Recheck/Abnormal Lab/Rx MDM Narrative Medical decision making narrative: Right lateral distal foreleg cellulitis last month, treated with cephalexin, had incomplete resolution but significant improvement, now increasing in area and redness with pain. No new injury, initial injury was scratched from metal object. No retained foreign body suspected. Afebrile on triage, sirs screen negative. Trial of clindamycin, given dose here, prescription sent to her pharmacy. Advised to take prescription antibiotics as directed. Bzki-prn-zjyclty analgesics to use if needed. Discharged home. Return precautions discussed. Discharge Plan Departure Patient Disposition: Home Clinical Impression: Cellulitis of right leg Activity Restrictions/Additional Instructions: Right foreleg redness after scratching on a metal object last month, previous course of 7 days cephalexin antibiotic, had improvement but not complete resolution, now with increasing redness in that area. History of allergy to sulfa antibiotics. Listed as an allergy but possible difficulty with doxycycline antibiotic. We will try clindamycin antibiotic course this time, 1st dose given in emergency department, 7 day course sent to your pharmacy. Please take antibiotics as directed. Recheck if not improving in the next couple of days. Recheck also if not fully resolved after 7 day course of treatment. Return earlier to this/nearest emergency department for any change worsening symptoms or any concerns prior. Prescriptions: New clindamycin HCl 300 mg capsule 300 mg PO Q6H 7 Days Qty: 28 0RF No Action sumatriptan succinate [Imitrex STATdose Pen] 4 mg/0.5 mL pen injector 4 mg SUBCUT ONCE Qty: 1 2RF Referrals: Brooklynn Hutton DO [Primary Care Provider, Family Practice] Stand Alone Forms: Patient Portal/API
[2025-02-04] MEDS: CLINDAMYCIN 150 MG CAPSULE 300 MG PO (22:39)
[2025-02-04 23:20] VITALS: BP 121/81; PULSE 79; RESP 14; O2SAT 96
== END 2025-02-04 23:20 | disposition home or self-care (01) ==
PROVIDERS: Emergency Provider Emergency Medicine; PCP Family Medicine
DX: L03.115 Cellulitis of right lower limb (principal)
CPT/HCPCS: 99283

== ENCOUNTER → 2025-03-26 08:28 | Outpatient (CLI) | payer OTHER, SELFPAY | PROVIDERS: PCP Family Medicine; Referring Provider Family Medicine; Visit Provider Surgery | DX: S81.801D Unspecified open wound, right lower leg, subsequent encounter (principal) | CPT/HCPCS: 99203; 99213 ==

== ENCOUNTER → 2025-03-26 09:15 | Outpatient (CLI) | payer OTHER, SELFPAY ==
--- NOTE | 2025-03-26 09:17 | DI.RAD.S_ITS ---
PROCEDURE: XR HUMERUS RT 2V INDICATIONS: chronic arm and shoulder pain b/l x >1 yr TECHNIQUE: 2 views of the humerus were acquired. COMPARISON: [facility], CR, XR SHOULDER RT 2+ VIEWS, 03/26/2025, 9:17. FINDINGS: Bones: No fractures or dislocations. No suspicious bony lesions. Age- appropriate bony degenerative changes are seen. Soft tissues: There is calcific tendinopathy. IMPRESSION: Calcific tendinopathy seen. Generalized degenerative changes are seen by plain film. Dictated by: Kaveh Rosado M.D. on 03/26/2025 at 10:08 Approved by: Kaveh Rosado M.D. on 03/26/2025 at 10:09
--- NOTE | 2025-03-26 09:17 | DI.RAD.S_ITS ---
PROCEDURE: XR SHOULDER RT MIN 2V INDICATIONS: chronic arm and shoulder pain 1 yr TECHNIQUE: 3 views of the shoulder were acquired. COMPARISON: [facility], CR, XR HUMERUS RT 2V, 03/26/2025, 9:17. FINDINGS: Bones: No fractures or dislocations. No suspicious bony lesions. Visualized ribs appear intact. Mild degenerative change can be seen of the acromioclavicular joint. There is also mild glenohumeral joint degenerative change. Soft tissues: There is calcific tendinopathy. The visualized lung demonstrates an unremarkable appearance. IMPRESSION: Degenerative changes are seen, including calcific tendinopathy. If it would be helpful for clinical management decision making, please consider a dedicated, scheduled shoulder MRI for further evaluation (assuming that there is no contraindication). Dictated by: Kaveh Rosado M.D. on 03/26/2025 at 10:10 Approved by: Kaveh Rosado M.D. on 03/26/2025 at 10:10
== END ==
PROVIDERS: PCP Family Medicine; Referring Provider Physician Assistant; Visit Provider Physician Assistant
DX: M65.811 Other synovitis and tenosynovitis, right shoulder (principal); M25.511 Pain in right shoulder; M25.512 Pain in left shoulder; M79.603 Pain in arm, unspecified; G89.29 Other chronic pain
CPT/HCPCS: 36415; 73030; 73060; 85651; 86140; 86430

== ENCOUNTER → 2025-04-10 11:46 | Outpatient (CLI) | payer OTHER, SELFPAY ==
[2025-04-10 15:30] LABS: Vitamin D 25 Hydroxy (D3) 49.5 ng/mL (30.0-100.0)
== END ==
PROVIDERS: PCP Family Medicine; Referring Provider Physician Assistant; Visit Provider Physician Assistant
DX: E55.9 Vitamin D deficiency, unspecified (principal)
CPT/HCPCS: 36415; 82306

== ENCOUNTER 2025-05-31 19:00 | Emergency (ER) | payer OTHER, SELFPAY ==
[2025-05-31] VITALS (8 sets, daily range): BP systolic 136–157; BP diastolic 65–85; PULSE 85–98; RESP 20; TEMP 37.5–38.8; O2SAT 96–98; BMI 27.1
--- NOTE | 2025-05-31 19:08 | DI.RAD.S_ITS ---
PROCEDURE: XR CHEST 1V INDICATIONS: fever TECHNIQUE: One view of the chest was acquired. COMPARISON: None. FINDINGS: Surgical changes and devices: None. Lungs and pleura: Suboptimal patient positioning, low lung volumes, and overlapping soft tissues partially obscures the left lower lung and left cardiac margin. Mild bilateral bronchial wall thickening in the perihilar regions. Possible left lateral lung base opacity. No pneumothorax. Mediastinum: Mediastinal contours appear normal. Heart size is normal. Bones and chest wall: No suspicious bony lesions. Overlying soft tissues appear unremarkable. IMPRESSION: Given technique and patient positioning, mild bronchial wall thickening and possible left lateral lower lung pneumonia. Clinical correlation recommended. Two-view chest or repeat one-view chest when the patient is able would also be helpful. Dictated by: Meka Orellana M.D. on 05/31/2025 at 20:03 Approved by: Meka Orellana M.D. on 05/31/2025 at 20:07
[2025-05-31] MEDS: IBUPROFEN 400 MG TABLET PO (19:25)
[2025-05-31] MEDS: ONDANSETRON 4 MG/2 ML INJ IV (19:25)
[2025-05-31] MEDS: ACETAMINOPHEN 325 MG TABLET 975 MG PO (19:26)
[2025-05-31 19:27] LABS: Add Manual Diff / Slide Review NO; Hematocrit 39.5 % (36-46); Hemoglobin 13.5 g/dL (12.0-16.0); Lymphocytes Absolute Auto 600 /uL (1100-4500); Mean Corpuscular HGB Conc 34.2 % (30-36); Mean Corpuscular Hemoglobin 30.1 PG (26-34); Mean Corpuscular Volume 88.1 fL (80-100); Platelet Count 260 X10^3/uL (150-400)
[2025-05-31] MEDS: SODIUM CHLORIDE 0.9% 1,000 ML 1000 ML IV (19:27)
[2025-05-31 19:38] LABS: Lipase 93 U/L (23-300)
[2025-05-31 19:40] LABS: Alanine Aminotransferase 25 IU/L (<35); Albumin 4.7 g/dL (3.5-5.0); Albumin Globulin Ratio 1.4 (1.0-2.8); Alkaline Phosphatase 87 U/L (38-126); Blood Urea Nitrogen 12 mg/dL (7-17); Calcium 9.0 mg/dL (8.4-10.2); Carbon Dioxide 24 mmol/L (22-32); Chloride 104 mmol/L (98-107); Estimated Glomerular Filt Rate > 60 mL/min (>60); Globulin 3.4 g/dL (1.7-4.1); Glucose 113 mg/dL (70-99); HEMOLYSIS < 15 (0-50); Lactate (Lactic Acid) 1.7 mmol/L (0.7-2.1); Potassium 4.0 mmol/L (3.4-5.1); Sodium 137 mmol/L (137-145); Total Protein 8.1 g/dL (6.3-8.2)
--- NOTE | 2025-05-31 19:54 | ED.GENADULT ---
HPI - General Adult General Chief complaint: Fever Stated complaint: flu, fever Time Seen by Provider: 05/31/25 19:04 Source: patient and family Mode of arrival: Family Vehicle History of Present Illness HPI narrative: 54-year-old woman with history of migraine, multiple abdominal surgeries including appendectomy, hysterectomy and tummy tuck with complications with all of them and subsequent chronic abdominal pain presents with significantly elevated fever and chills, reports 106.7 and 106.9 temperatures measured prior to decision to come into the emergency department. She is dizzy, nauseated, generally weak very cold sensitive and appears miserable. Apparently she was having mild upper respiratory symptoms earlier today, had a flu shot mid day and symptoms have progressed from there. There was no nausea, vomiting or overt cough, chest pain or abdominal pain. No dysuria. She states the headache portion of her symptoms does feel like her typical migraine Related Data Previous Rx's ?Medication ?Instructions ?Recorded sumatriptan succinate 4 mg/0.5 mL 4 mg (0.5 mL) SUBCUT ONCE #1 mL 08/20/24 subcutaneous pen injector (Imitrex STATdose Pen) Allergies Allergy/AdvReac Type Severity Reaction Status Date / Time Sulfa (Sulfonamide Allergy Hives Verified 05/31/25 19:09 Antibiotics) morphine AdvReac Severe ITCHING Verified 05/31/25 19:09 Review of Systems Review of Systems Narrative: Pertinent positive and negative findings as per HPI Patient History Medical History Migraines Scoliosis (~1981) Endometriosis (~2019) Abnormal Pap smear of cervix (~2019) BMI 28.0-28.9,adult Surgical History History of colonoscopy Anesthesia History of appendectomy History of section Family History Father Dementia Mother Osteoporosis Smoking Status: Never smoker alcohol intake frequency: 0-2 drinks per day Exam Initial Vital Signs Initial Vital Signs: Vital Signs Temperature 101.8 F H 05/31/25 19:09 Pulse Rate 98 H 05/31/25 19:09 Respiratory Rate 20 05/31/25 19:09 Blood Pressure 157/85 H 05/31/25 19:09 Pulse Oximetry 98 05/31/25 19:09 Oxygen Delivery Method Room Air 05/31/25 19:09 General: Appears acutely ill, significantly photophobic, chills HEENT: Moist mucous membranes, normal sclera with reactive pupils, very photophobic Neck: No cervical adenopathy, no nuchal rigidity Respiratory: Lungs are clear to auscultation, no wheezing no rales no rhonchi. Full and symmetrical air movement Cardiac: Tachycardic but otherwise Regular rate and rhythm no murmurs no bruits Abdomen: Soft, significantly tender along the central portion of her abdomen which she states is her baseline and is not worse or change at this time. She does not have any flank pain Skin: Pale, mildly diaphoretic, Neurologic: Grossly neurologically intact with no obvious asymmetries or abnormalities Extremities: No trauma, well perfused Psych: Cooperative, appropriate insight and affect Course Orders Ordered: ED Orders 05/31/25 19:08 XR chest 1V Stat Urinalysis and Microscopic Stat 05/31/25 19:17 Complete Blood Count AUTO DIFF Stat Comprehensive Metabolic Panel Stat Covid-19 + FLU A/B + RSV - PCR Stat Lactate (Lactic Acid) Stat Lipase Stat Procalcitonin Stat 05/31/25 19:32 Blood Culture Stat Sodium Chloride (Normal Saline 0.9%) 1,000 mls @ 1,000 mls/hr IV BOLUS ONE Stop: 05/31/25 20:06 Last Admin: 05/31/25 19:27 Dose: 1,000 mls/hr Documented By: BELÉN Discontinued Medications Acetaminophen (Acetaminophen 325 Mg Tablet) 975 mg PO NOW ONE Stop: 05/31/25 19:08 Last Admin: 05/31/25 19:26 Dose: 975 mg Documented By: BELÉN Ibuprofen (Ibuprofen 400 Mg Tablet) 400 mg PO NOW ONE Stop: 05/31/25 19:08 Last Admin: 05/31/25 19:25 Dose: 400 mg Documented By: BELÉN Ondansetron HCl (Ondansetron 4 Mg/2 Ml Inj) 4 mg IV NOW ONE Stop: 05/31/25 19:08 Last Admin: 05/31/25 19:25 Dose: 4 mg Documented By: BELÉN Vital Signs Vital signs: Vital Signs - 8 hr 05/31/25 19:09 Temperature 101.8 F H Pulse Rate 98 H Respiratory Rate 20 Blood Pressure 157/85 H Pulse Oximetry 98 Oxygen Delivery Method Room Air Medical Decision Making Lab Data 05/31/25 19:17 05/31/25 19:17 Labs: Lab Results 05/31/25 Range/Units 19:17 WBC 7.2 (4.5-11.0) X10^3/uL RBC 4.49 (4.0-5.2) X10^6/uL Hgb 13.5 (12.0-16.0) g/dL Hct 39.5 (36-46) % MCV 88.1 (80-100) fL MCH 30.1 (26-34) PG MCHC 34.2 (30-36) % RDW 13.4 (11.6-14.8) % Plt Count 260 (150-400) X10^3/uL Neut % (Auto) 84.1 H (50-75) % Lymph % (Auto) 8.0 L (25-40) % [place] % (Auto) 5.0 (3-14) % Eos % (Auto) 0.9 L (2-4) % Baso % (Auto) 2.0 (0-2) % Neut # (Auto) 6000 (2807-5907) /uL Lymph # (Auto) 600 L (7636-4866) /uL [place] # (Auto) 400 (0-900) /uL Eos # (Auto) 100 (0-450) /uL Baso # (Auto) 100 (0-100) /uL Sodium 137 (137-145) mmol/L Potassium 4.0 (3.4-5.1) mmol/L Chloride 104 (98-107) mmol/L Carbon Dioxide 24 (22-32) mmol/L BUN 12 (7-17) mg/dL Creatinine 0.77 (0.52-1.04) mg/dL Estimated GFR > 60 (>60) mL/min BUN/Creatinine Ratio 15.6 (6-22) Glucose 113 H (70-99) mg/dL Lactate 1.7 (0.7-2.1) mmol/L Calcium 9.0 (8.4-10.2) mg/dL Total Bilirubin 0.6 (0.2-1.3) mg/dL AST 27 (14-36) IU/L ALT 25 (<35) IU/L Alkaline Phosphatase 87 (38-126) U/L Total Protein 8.1 (6.3-8.2) g/dL Albumin 4.7 (3.5-5.0) g/dL Globulin 3.4 (1.7-4.1) g/dL Albumin/Globulin Ratio 1.4 (1.0-2.8) Lipase 93 (23-300) U/L MDM Narrative Medical decision making narrative: CC:fever, chills, headache Complicating co-morbidities: flu shot today Data collected from: patient Medical records reviewed: Primary care notes and well woman visits reviewed Differential considered: Influenza, reaction to influenza vaccine, migraine is a reaction to her vaccine, sepsis, intra-abdominal abnormality Exam documented above, pertinent findings include: Patient appears acutely toxic on arrival. Extremely photophobic, febrile, severe headache, significant abdominal pain although she feels that her abdominal pain is at her baseline Lab Test results independently reviewed as above. Pertinent findings: CBC is unremarkable however she does have 84% neutrophils with a white count of 7.2 Chemistries are reassuring with normal renal function, no liver abnormalities Procalcitonin is not elevated She is testing positive for COVID, no influenza Imaging studies independently reviewed: Chest x-ray is unremarkable Treatments: Fluids, ibuprofen orally, Tylenol orally, IV Zofran Discussion: 54-year-old woman presents with severe headache high fevers and general malaise. She is currently testing positive for COVID and does have a history of migraine. Once the migraine has been treated, fluids have been replaced she is feeling significantly better. Fever has cleared after the Tylenol and ibuprofen. There is no indication of sepsis, life-threatening infection or reason for hospitalization at this time. Findings reviewed with the patient. I suspect that she had COVID to start with, exacerbated by her influenza vaccine today both of which set off her migraine. At this point she is tolerating liquids, headache has essentially resolved, she is feeling significantly improved. There was no indication for hospitalization or advanced imaging and she is safe for discharge Discharge Plan Departure Patient Disposition: Home Clinical Impression: COVID Migraine Qualifiers: Migraine type: unspecified Status migrainosus presence: without status migrainosus Intractability: not intractable Qualified Code(s): G43.909 - Migraine, unspecified, not intractable, without status migrainosus Instructions: DI for Migraine, DI for Viral Upper Respiratory Infection -- Adult Activity Restrictions/Additional Instructions: Thank you for coming in today You actually have COVID. I suspect that was the mild upper respiratory symptoms you had this morning than with the influenza vaccine between the 2 of those, they set off a migraine. Treat COVID as you would any viral upper respiratory infection. When you feel that you are not coughing, back to your baseline and no longer febrile you can return to usual activities Using 400 mg of ibuprofen (2 [id number] pills) and 1 Tylenol every 6 hours can be very helpful in controlling pain. Making sure you are staying well hydrated and should you have recurrent headaches Imitrex is perfectly okay to add to the ibuprofen and Tylenol. Headaches with COVID are notoriously difficult to treat If you find that you are getting worse or develop any new symptoms, please feel free to return to the emergency department for further evaluation. Prescriptions: No Action sumatriptan succinate [Imitrex STATdose Pen] 4 mg/0.5 mL pen injector 4 mg SUBCUT ONCE Qty: 1 2RF Referrals: Brooklynn Hutton DO [Primary Care Provider, Family Practice] Stand Alone Forms: Patient Portal/API
[2025-05-31 19:56] LABS: Procalcitonin 0.065 ng/mL (<0.5)
[2025-05-31 20:12] LABS: Influenza A - CEPHEID Flu A NEGATIVE (NEGATIVE); Influenza B - CEPHEID Flu B NEGATIVE (NEGATIVE)
[2025-05-31 20:13] LABS: COVID-19 CEPHEID 4-PLEX PCR POSITIVE (Negative)
[2025-05-31 20:22] LABS: Appearance Urine UA CLEAR; Bilirubin Urine UA NEGATIVE (NEGATIVE); Color Urine UA YELLOW; Glucose Urine UA NEGATIVE (Negative); Ketones Urine UA NEGATIVE (NEGATIVE); Leukocyte Esterase Urine UA NEGATIVE (NEGATIVE); Nitrite Urine UA NEGATIVE (Negative); Occult Blood Urine UA NEGATIVE (Negative); Protein Urine UA NEGATIVE (Negative); Specific Gravity Urine UA 1.015 (1.000-1.035); Urobilinogen Urine UA 0.2 E.U./dL (0.2)
[2025-05-31 20:23] LABS: pH Urine UA 8.0 (4.5-8.0)
[2025-05-31 20:30] LABS: Culture Indicated Urine Cult Not Indicated
== END 2025-05-31 20:35 | disposition home or self-care (01) ==
PROVIDERS: Emergency Provider Emergency Medicine; PCP Family Medicine
DX: U07.1 COVID-19 (principal); G43.909 Migraine, unspecified, not intractable, without status migrainosus
CPT/HCPCS: 36415; 71045; 80053; 81001; 83605; 83690; 84145; 85025; 87040; 87637; 96361; 96374; 99284; J2405

== ENCOUNTER → 2025-08-07 06:44 | Outpatient (CLI) | payer OTHER, SELFPAY ==
--- NOTE | 2025-08-07 06:45 | DI.US.S_ITS ---
PROCEDURE: US PELVIC COMPLETE INDICATIONS: PMB TECHNIQUE: Real-time scanning was performed of the pelvic organs, with image documentation. Additional endovaginal scanning was necessary due to incomplete visualization of the adnexal and endometrial structures by transabdominal scanning. COMPARISON: None. FINDINGS: Uterus: Uterus is anteverted and normal in size at 6.8 x 3.2 x 4.3 cm. The myometrium is heterogeneous. The endometrium measures 8.9 mm combined thickness. Thickened heterogeneous endometrium with minimal internal vascularity. Left posterior subserosal fibroid measuring 9 x 7 x 10 mm. Ovaries: The right ovary is not seen. The left ovary measures 0.9 x 1.6 x 1.1 cm, with a calculated ovarian volume of 0.8 cc. The left ovary is normal in appearance. Other: No pathologic free abdominal or pelvic fluid. IMPRESSION: Endometrium is thickened measuring up to 9 mm. Recommend tissue sampling or short-term follow-up ultrasound. Left ovary is normal in appearance. Right ovary is not seen. We strive to produce accurate, complete, and clear reports of imaging services. To assist us in improving patient care, this report was composed using standard report templates and voice recognition software. Therefore, it may contain abnormal punctuation, insertions and/or omissions. Occasional wrong-word or sound-alike substitutions may occur. Though we review the report and make efforts to correct it, we do recommend that the report be read carefully in proper context to recognize any text inaccuracies. Dictated by: Guanako Alanis M.D. on 08/07/2025 at 8:08 Approved by: Guanako Alanis M.D. on 08/07/2025 at 8:11
== END ==
LOC: US 06:44
PROVIDERS: PCP Family Medicine; Referring Provider Family Medicine; Visit Provider Family Medicine
DX: N95.0 Postmenopausal bleeding (principal); D25.2 Subserosal leiomyoma of uterus; R93.89 Abnormal findings on diagnostic imaging of other specified body structures
CPT/HCPCS: 76830; 76856